=== PATIENT | female | born 1965 | race Caucasian/White ===

== ENCOUNTER 2024-05-21 15:20 | Emergency (ER) | payer OTHER, SELFPAY ==
[2024-05-21 15:26] VITALS: BP 125/83
--- NOTE | 2024-05-21 17:24 | ED.MUSCINJ ---
HPI-Injury
General
Chief Complaint: Musculo-Skeletal Complaint
Source: patient
Exam Limitations: none
Time Seen by Provider: 05/21/24 15:44
History of Present Illness-Injury
Initial Injury comments:
58-year-old female [id number] presents complaining of right ring finger pain starting today after she missed stepped at the bottom of the steps and fell forward. She also hit her right elbow. She did not hit her head. No other complaints
at this time
Phy Exam
Physical Exam
Physical Exam:
General: Well-appearing female no acute respiratory distress
HEENT: normocephalic atraumatic
Musculoskeletal exam: Right ring finger tender with deformity over the PIP joint. The right elbow is also tender over the ulnar aspect of the elbow. Spine nontender
Neurologic: Good sensation right hand
Injury Course
Orders/Labs/Results
Orders:
Orders
05/21/24 15:30
Hand, Right 3 View [CR Hand - Right Min 3 Views] Urgent
Comment: hand got caught up baseboard
Reason For Exam: right hand pain attention to ring finger
05/21/24 16:49
CR Elbow - Right Min 3 Views Urgent
Comment:
Reason For Exam: fall
CR Finger(s)/thumb Min 2 Vw Rt Urgent
Comment:
Reason For Exam: post reduction
MDM/Problems Addressed
Differential Diagnosis Includes:
Right ring finger pain and elbow pain after a fall. Consider fracture dislocation versus contusion
X-rays of the right ring finger were ordered through triage which I have personally visualized demonstrated dislocation without fracture of the PIP joint of the right ring finger. I gave the patient a digital block of the finger and she tolerated
this well. The finger was then reduced with longitudinal traction and dorsal pressure. Postreduction films demonstrate successful reduction of the finger. X-rays of the right elbow was then added which were also negative for acute finding. Will
discharge patient with splint on finger.
*Critical Care Note
Total Time (30-74mins, 75-104mins- exclusive of procedures): Not Applicable
ED Attending Note
-
Portions of this chart may have been created with voice recognition software.� Occasional wrong word or��sound alike� substitutions may have occurred due to the inherent limitations of voice recognition software.
Discharge Plan
Departure
Patient Disposition: Home (Routine Discharge)
Date of Disposition: 05/21/24
Time of Disposition: 17:27
Patient with high blood pressure during this ER visit?: No
Discharge Problem:
Dislocation of finger
Instructions: Muscle and Bone Pain (DC)
Referrals:
Paul Alfonso, DO [Family Provider] -
Activity Restrictions/Additional Instructions:
Use ibuprofen or Tylenol for pain. Keep splint on for 2 days then you may remove the finger from the splint and start moving the finger. Follow-up with your orthopedic doctor if needed.
Interventions
Interventions:
*Risk Screen - Suicide Last Done: 05/21/24 15:44
*General Assessment Last Done: 05/21/24 15:44
*Neglect/Abuse Screening Last Done: 05/21/24 15:44
*ED COVID-19 Vaccine History Last Done: 05/21/24 15:44
ED-Musculoskeletal Assessment Last Done: 05/21/24 15:44
Discharge Date and Time
Print Language: SERBIAN
[2024-05-21 17:37] VITALS: BP 122/78
== END 2024-05-21 17:38 | disposition home or self-care (01) ==
LOC: EMR 15:20
PROVIDERS: EMERGENCY PHYSICIAN Emergency Medicine; FAMILY PHYSICIAN Family Medicine
DX: S63.254A Unspecified dislocation of right ring finger, initial encounter (principal); W10.9XXA Fall (on) (from) unspecified stairs and steps, initial encounter
CPT/HCPCS: 99283; 26770; 73080; 73130; 73140

== ENCOUNTER 2025-01-28 06:23 | Day surgery (SDC) | payer BC, SELFPAY | END 2025-01-28 09:17 | disposition home or self-care (01) | LOC: GI 06:23 | PROVIDERS: ATTENDING PHYSICIAN Internal Medicine Gastroenterology; FAMILY PHYSICIAN Family Medicine | DX: Z12.11 Encounter for screening for malignant neoplasm of colon (principal); D12.3 Benign neoplasm of transverse colon; K57.30 Diverticulosis of large intestine without perforation or abscess without bleeding; Z86.0101 Personal history of adenomatous and serrated colon polyps | CPT/HCPCS: 45380; 88305 ==